=== PATIENT | male | born 1990 | race Caucasian/White ===

== ENCOUNTER 2017-09-15 12:54 | Emergency (ER) | payer BC ==
[2017-09-15 13:23] VITALS: BP 108/77
[2017-09-15] MEDS ORDERED: Ketorolac INJ* 60 MG/2 ML VIAL IM ONE (14:28)
--- NOTE | 2017-09-15 14:40 | UC ---
Emma Gupta Simon, scribed for King Puente MD on 09/15/17 at 1409 . Upper Extremity HPI - HPI Summary HPI Summary: This patient is a 27 year old M presenting to [facility] with a chief complaint of left hand pain since 09/14/17 evening. Patient endorses a hutch fell on top of left hand while moving furniture. He describes the pain as sharp and throbbing with a 9/10 severity. - History of Current Complaint Chief Complaint: UCUpperExtremity Stated Complaint: HAND INJURY Time Seen by Provider: 09/15/17 14:00 Hx Obtained From: Patient Onset/Duration: Sudden Onset, Lasting Hours, Still Present Severity Initially: Severe Severity Currently: Severe Pain Intensity: 9 Pain Scale Used: 0-10 Numeric Location Of Pain: Is Discrete @ - left hand and wrist Character: Sharp, Throbbing Aggravating Factor(s): Movement Alleviating Factor(s): Rest Associated Signs And Symptoms: Negative: Numbness/Tingling - Allergies/Home Medications Allergies/Adverse Reactions: Allergies Allergy/AdvReac Type Severity Reaction Status Date / Time Penicillins Allergy Anaphylatic Verified 09/15/17 13:17 Shock Home Medications: Home Medications NK [No Home Medications Reported] 09/15/17 [History Confirmed 09/15/17] PMH/Surg Hx/FS Hx/Imm Hx Previously Healthy: Yes - Surgical History Surgical History: Yes Surgery Procedure, Year, and Place: Appendectomy - Social History Alcohol Use: None Substance Use Type: None Smoking Status (MU): Never Smoked Tobacco Review of Systems Skin: Other - no abrasions Musculoskeletal: Arthralgia, Decreased ROM - secondary to pain, Myalgia All Other Systems Reviewed And Are Negative: Yes Physical Exam - Summary Physical Exam Summary: VITAL SIGNS: Reviewed. GENERAL: Patient is a well-developed and nourished male who is lying comfortable in the stretcher. Patient is not in any acute respiratory distress. HEAD AND FACE: Normocephalic EYES: PERRLA, EOMI x 2. EARS: Hearing grossly intact. MOUTH: Oropharynx within normal limits. NECK: Supple, trachea is midline, no adenopathy, no JVD, no carotid bruit. CHEST: Symmetric, no tenderness at palpation LUNGS: Clear to auscultation bilaterally. No wheezing or crackles. CVS: Regular rate and rhythm, S1 and S2 present, no murmurs or gallops appreciated. ABDOMEN: Soft, non-tender. Bowel sounds are normal. No abdominal abnormal pulsations. EXTREMITIES: no edema, no cyanosis or clubbing. No deformity, no abrasions, decreased ROM in left hand secondary to pain, good capillary refill NEURO: Alert and oriented x 3. No acute neurological deficits. Speech is normal and follows commands. SKIN: Dry and warm, no abrasions. Triage Information Reviewed: Yes Vital Signs: Initial Vital Signs Temp 99.6 F 09/15/17 13:17 Pulse 75 09/15/17 13:17 Resp 18 09/15/17 13:17 BP 108/77 09/15/17 13:17 Pulse Ox 100 09/15/17 13:17 Vital Signs Reviewed: Yes Upper Extremity Course/Dx - Course Course Of Treatment: X-ray of the left hand and left wrist are pending. The patient will be signed out at shift change to Dr. Bautista. - Differential Dx/Diagnosis Provider Diagnoses: hand pain Discharge - Sign-Out/Discharge Documenting (check all that apply): Sign-Out Patient Signing out patient TO: Chau Bautista - Discharge Plan Condition: Stable Disposition: HOME Referrals: Srini Killian MD [Primary Care Provider] - Additional Instructions: Take medications as instructed Increase your fluid intake Return to the if symptoms worsen - Billing Disposition and Condition Condition: STABLE Disposition: Home The documentation as recorded by the Emma maldonado Simon accurately reflects the service I personally performed and the decisions made by , King Puente MD.
--- NOTE | 2017-09-15 14:49 | RAD ---
INDICATION: Dorsal hand pain overlying the second through fourth metacarpals after furniture fell on hand COMPARISON: None. TECHNIQUE: 4 views of the left hand and 3 views of the left wrist were obtained. FINDINGS: The adequately corticated bones are in normal alignment. No significant focal osseous abnormality or fracture is seen. Joint spaces appear maintained. IMPRESSION: No radiographically apparent fracture or dislocation of the left hand or wrist. If the patient's symptoms persist, follow-up imaging is recommended.
--- NOTE | 2017-09-15 15:00 | UC ---
- Progress Note Progress Note: XR results signed out to tx - EKG/XRAY/CT XRAY: hand and wrist -left Xray Comments: Small avulsion fracture hamate - Additional EKG/XRAY/Consults XRAY #2: hand Discharge - Sign-Out/Discharge Documenting (check all that apply): Discharge/Admit/Transfer - Discharge Plan Condition: Stable Disposition: HOME Prescriptions: HYDROcodone/ACETAMIN 5-325 MG* [[place] 5-325 TAB*] 1 tab PO Q4H PRN #12 tab MDD 6 PRN Reason: Pain Ibuprofen TAB* [Motrin TAB*] 600 mg PO Q6H PRN #40 tab PRN Reason: Pain Patient Education Materials: Wrist Fracture in Adults (ED) Forms: *Work Release Referrals: Regulo Coles MD [Medical Doctor] - As Soon As Possible Additional Instructions: Take medications as instructed Increase your fluid intake Return to the UC if symptoms worsen your xr showed a small chip of the hamate bone elevate elevate elevate ice splint - Billing Disposition and Condition Condition: STABLE Disposition: Home
== END 2017-09-15 15:19 | disposition home or self-care (01) ==
LOC: UCEAST 12:54
DX: M79.642 Pain in left hand (principal); Z88.0 Allergy status to penicillin; W20.8XXA Other cause of strike by thrown, projected or falling object, initial encounter; Y92.9 Unspecified place or not applicable
CPT/HCPCS: 96372; 99203; G0463; J1885

== ENCOUNTER 2018-06-26 13:25 | Emergency (ER) | payer BC ==
--- NOTE | 2018-06-26 13:36 | UC ---
Complaint Male HPI - HPI Summary HPI Summary: 27 yo male presents with lump to left groin. He tells me that about a week ago he noticed a small lump in his left groin. Since that time has gotten larger and more painful. 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 He denies fever, testicular pain, dysuria, or penile drainage. - History of Current Complaint Stated Complaint: PERSONAL Time Seen by Provider: 06/26/18 13:36 Hx Obtained From: Patient Onset/Duration: Gradual Onset Severity Initially: Moderate Severity Currently: Moderate Pain Intensity: 8 Pain Scale Used: 0-10 Numeric - Allergies/Home Medications Allergies/Adverse Reactions: Allergies Allergy/AdvReac Type Severity Reaction Status Date / Time Penicillins Allergy Anaphylatic Verified 06/26/18 13:31 Shock PMH/Surg Hx/FS Hx/Imm Hx - Additional Past Medical History Additional PMH: None - Surgical History Surgical History: Yes Surgery Procedure, Year, and Place: Appendectomy - Family History Known Family History: Positive: None - Social History Occupation: Employed Full-time Lives: With Family Alcohol Use: None Substance Use Type: None Smoking Status (MU): Never Smoked Tobacco Review of Systems All Other Systems Reviewed And Are Negative: Yes Constitutional: Positive: Negative Skin: Positive: Other - Left groin lump Respiratory: Positive: Negative Cardiovascular: Positive: Negative Gastrointestinal: Positive: Negative Genitourinary: Positive: Negative Neurological: Positive: Negative Psychological: Positive: Negative Physical Exam - Summary Physical Exam Summary: GENERAL: NAD. WDWN. No pain distress. SKIN: LEFT GROIN: 2.5cm linear firm nodule with slight fluctuance to left groin adjacent to scrotum. TTP. No warmth, erythema, or streaking. NECK: Supple. Nontender. No lymphadenopathy. CHEST: No accessory muscle use. Breathing comfortably and in no distress. CV: Pulses intact. Cap refill <2seconds ABDOMEN: Soft. NTTP. No distention or guarding. No organomegaly. No CVA tenderness. Bowel sounds present NEURO: Alert. PSYCH: Age appropriate behavior. Triage Information Reviewed: Yes Vital Signs: Vital Signs: Temp Pulse Resp BP Pulse Ox 98.7 F 67 20 130/80 99 06/26/18 13:32 06/26/18 13:32 06/26/18 13:32 04/16/19 13:32 06/26/18 13:32 Vital Signs Reviewed: Yes Male Genital Exam: Positive: No Hernia. Negative: Epididymal Tenderness, Scrotum Tenderness (R), Scrotum Tenderness (L), Testicular Tenderness (R), Testicular Tenderness (L), Urethral Discharge Complaint Male Course/Dx - Course Course Of Treatment: US: IMPRESSION: Ovoid hypoechoic mass just under the subcutaneous layer as described above which may represent epidermal inclusion cyst. Discussed with pt that this has the potential to subside with cool compress, but would recommend I&D today -- he did not want to do this and prefers to try cool compresses. Therefore, will start him with Bactrim to cover for potential abscess/infectious etiology and have him f/u if does not improve. - Differential Dx/Diagnosis Provider Diagnosis: Groin cyst Discharge - Sign-Out/Discharge Documenting (check all that apply): Patient Departure All imaging exams completed and their final reports reviewed: Yes - Discharge Plan Condition: Stable Disposition: HOME Prescriptions: Sulfamethox/Trimethoprim DS* [Bactrim DS 800/160 TAB*] 1 tab PO BID #14 tab Patient Education Materials: Abscess (ED), Epidermal Inclusion Cysts (ED) Referrals: Srini Killian MD [Primary Care Provider] - Additional Instructions: If you develop a fever, shortness of breath, chest pain, new or worsening symptoms - please call your PCP or go to the ED. Take your antibiotics and apply ice to the area. The area may need to be drained in a few days if antibiotics do not improve the pain/swelling - Billing Disposition and Condition Condition: STABLE Disposition: Home
[2018-06-26 13:38] VITALS: BP 130/80
== END 2018-06-26 15:05 | disposition home or self-care (01) ==
LOC: UCEAST 13:25
DX: R19.09 Other intra-abdominal and pelvic swelling, mass and lump (principal); Z88.0 Allergy status to penicillin
CPT/HCPCS: 99212; G0463

== ENCOUNTER 2018-07-23 19:20 | Emergency (ER) | payer BC ==
[2018-07-23] MEDS ORDERED: diPHENhydraMINE IV* 50 MG/ML 1 ml VIAL (BENADRYL) IV ONE (19:25)
[2018-07-23] MEDS ORDERED: methylPREDNISolone 125 MG* 2 ML VIAL IV ONE (19:25)
[2018-07-23] MEDS ORDERED: Famotidine IV* 10 MG/ML 2 ML (20 mg) IV SLOW PU ONE (19:25)
[2018-07-23] MEDS ORDERED: NS 0.9% 1000 ML** 1,000 ML IV ONE (19:26)
[2018-07-23] MEDS ORDERED: Ondansetron INJ* 2 MG/ML VIAL IV ONE (19:51)
--- NOTE | 2018-07-23 20:08 | UC ---
Allergic Reaction HPI - HPI Summary HPI Summary: 27-year-old male comes in with a chief complaint of rash and feeling his throat is closing. Patient had a bananna around 1:00 this afternoon. Couple hours later he started with a rash on his body. His similar rash before when he had allergic reaction that he was told was probably due to to reaction to pesticides. Discussed the laboratory started feeling his throat was closing. Has not taken any medications. - History of Current Complaint Chief Complaint: UCAllergicReaction Stated Complaint: POSSIBLE ALLERGIC REACTION Time Seen by Provider: 07/23/18 19:24 Pain Intensity: 0 - Allergies/Home Medications Allergies/Adverse Reactions: Allergies Allergy/AdvReac Type Severity Reaction Status Date / Time banana Allergy Anaphylatic Verified 07/23/18 20:11 Shock Penicillins Allergy Anaphylatic Verified 06/26/18 13:31 Shock Home Medications: Home Medications Acetaminophen [Tylenol] 325 mg PO Q6HR PRN 07/23/18 [History Confirmed 07/23/18] PMH/Surg Hx/FS Hx/Imm Hx Previously Healthy: Yes - Surgical History Surgical History: Yes Surgery Procedure, Year, and Place: Appendectomy - Family History Known Family History: Positive: None - Social History Alcohol Use: None Substance Use Type: None Smoking Status (MU): Never Smoked Tobacco Review of Systems All Other Systems Reviewed And Are Negative: Yes Constitutional: Positive: Negative Skin: Positive: Rash - SEE HPI Eyes: Positive: Negative ENT: Positive: Sore Throat - SEE HPI Respiratory: Positive: Other - SEE HPI Gastrointestinal: Positive: Nausea Motor: Positive: Negative Neurovascular: Positive: Negative Musculoskeletal: Positive: Negative Neurological: Positive: Negative Psychological: Positive: Negative Is Patient Immunocompromised?: No Physical Exam Triage Information Reviewed: Yes Appearance: No Pain Distress, Well-Nourished, Other: - MILDLY ANXIOUS Vital Signs: Initial Vital Signs Temp 99.2 F 07/23/18 19:47 Pulse 56 07/23/18 19:47 Resp 18 07/23/18 19:47 BP 108/69 07/23/18 19:47 Pulse Ox 97 07/23/18 19:47 Vital Signs Reviewed: Yes Eye Exam: Normal Eyes: Positive: Conjunctiva Clear ENT: Positive: Pharynx normal, Uvula midline Neck: Positive: Supple Respiratory: Positive: Lungs clear, Normal breath sounds, No respiratory distress. Negative: Stridor, Wheezing Cardiovascular: Positive: RRR Musculoskeletal Exam: Normal Musculoskeletal: Positive: Strength Intact, ROM Intact Neurological Exam: Normal Neurological: Positive: Alert, Muscle Tone Normal Psychological Exam: Normal Psychological: Positive: Normal Response To Family, Age Appropriate Behavior Skin: Positive: Rashes - RAISED ERYTHEMATOUS AREAS ON ARMS AND FACE Allergic Reaction Course/Dx - Differential Dx/Diagnosis Provider Diagnosis: Allergic reaction Discharge - Sign-Out/Discharge Documenting (check all that apply): Patient Departure All imaging exams completed and their final reports reviewed: No Studies - Discharge Plan Condition: Stable Disposition: HOME Prescriptions: EPINEPHrine [Epipen 2-Louis] 0.3 mg IM ONCE PRN #1 inj PRN Reason: Allergy Symptoms Famotidine TAB* [Pepcid 20 MG TAB*] 20 mg PO BID PRN #10 tab PRN Reason: Allergy Symptoms predniSONE TAB* [Deltasone 20 MG TAB*] 40 mg PO DAILY PRN #10 tab PRN Reason: Allergy Symptoms Patient Education Materials: General Allergic Reaction (ED) Referrals: Srini Killian MD [Primary Care Provider] - Additional Instructions: FOLLOW UP WITH YOUR DOCTOR IF NOT COMPLETELY IMPROVED. TAKE BENADRYL 50MG EVERY 6 HOURS NEEDED. TAKE PEPCID 20MG TWICE A DAY NEEDED. TAKE THE PREDNISONE DIRECTED NEEDED. GET RECHECKED SOONER IF YOUR CONDITION WORSENS OR ANY QUESTIONS OR CONCERNS. - Billing Disposition and Condition Condition: STABLE Disposition: Home
[2018-07-23 20:22] VITALS: BP 118/65
== END 2018-07-23 20:45 | disposition home or self-care (01) ==
LOC: UCEAST 19:20
DX: Z88.0 Allergy status to penicillin (principal); T78.40XA Allergy, unspecified, initial encounter; X58.XXXA Exposure to other specified factors, initial encounter
CPT/HCPCS: 96360; 96374; 96375; 99212; G0463; J1200; J2405; J2930